=== PATIENT | male | born 1995 | race Hispanic/Latino ===

== ENCOUNTER → 2020-03-08 | Outpatient (CLI) | payer SELFPAY ==
[~2020-03-08] MED LIST: LIDOCAINE HCL 1% LOCAL INJ 20 ML VIAL ONE
[2020-03-08 11:01] LABS: HEMOGLOBIN 14.9 g/dL (14.0-18.0)
[2020-03-08 11:24] LABS: INR 0.93
[2020-03-08 11:25] LABS: PARTIAL THROMBOPLASTIN TIME 33.6 seconds (23.8-35.5)
[2020-03-08 14:33] LABS: TOTAL PROTEIN,CSF 49.7 mg/dL (15-40)
--- NOTE | 2020-03-08 15:49 | Diagnostic Imaging Report ---
PROCEDURE: Lumbar puncture Procedural Personnel Attending physician(s): Mundo Blackburn MD Fellow physician(s): None Resident physician(s): None Advanced practice provider(s): None Pre-procedure diagnosis: Multiple sclerosis Post-procedure diagnosis: Same Indication: Suspicion of multiple sclerosis Additional clinical history: None Complications: No immediate complications. IMPRESSION: Fluoroscopically guided lumbar puncture. Opening pressure of 13. Fluid removed and sent for further analysis. PROCEDURE SUMMARY: - Fluoroscopically guided lumbar puncture at L4-5. - Opening pressure measured at 13 PROCEDURE DETAILS: Pre-procedure Consent: Informed consent for the procedure including risks, benefits and alternatives was obtained and time-out was performed prior to the procedure. Preparation: The site was prepared and draped using maximal sterile barrier technique including cutaneous antisepsis. Anesthesia/sedation Level of anesthesia/sedation: Local 1% lidocaine Lumbar Puncture [employer] images were obtained. Under image guidance and via a translaminar approach, a needle was advanced to the thecal space. Opening pressure was measured and CSF was obtained for further analysis. Target level: L4-5 Radiation Dose Fluoroscopy time (minutes): 0.9 Reference air kerma (mGy): 14.1 Additional Details Additional description of procedure: None Equipment details: None Specimens removed: CSF samples as described above Estimated blood loss (mL): Minimal Attestation Signer name: Mundo Blackburn MD I attest that I was present for the entire procedure. I reviewed the stored images and agree with the report as written. Signed by: Mundo Blackburn MD on 03/08/2020 3:46 PM
== END ==
LOC: DX 10:34
PROVIDERS: ATTEND Psychiatry & Neurology Neurology
DX: G35 Multiple sclerosis (principal)
CPT/HCPCS: 36415; 62328; 77003; 82040; 82784; 82945; 83916; 84157; 84165; 85014; 85049; 85610; 85651; 85730; 86403; 86618; 87070; 87116; 87205; 87206; 87327; J2001